=== PATIENT | female | born 1985 | race Two or more races ===

== ENCOUNTER 2017-01-08 15:54 | Emergency (ER) | payer MEDICAID ==
[~2017-01-08] VITALS: Ht 157.5 cm; Wt 90.7 kg
[~2017-01-08 15:54] MED LIST: ARIP15TA6 PO; BENZ0.5T6 PO; FER325T PO; FLUP5TAB PO; HYDR50CA2 PO; METF-371 PO; QUET25TA37; SERT-135 PO; [UNRECOGNIZED DRUG - CODE] PO
[2017-01-08 16:09] VITALS: BP 138/95
[2017-01-08] MEDS ORDERED: IBUPROFEN 600 MG TAB PO ONE (22:30)
== END 2017-01-08 22:35 | disposition home or self-care (01) ==
LOC: ER 16:13
DX: R51 Headache (principal); R07.89 Other chest pain; E11.9 Type 2 diabetes mellitus without complications; I10 Essential (primary) hypertension; J45.909 Unspecified asthma, uncomplicated
CPT/HCPCS: 70450; 71010; 93005

== ENCOUNTER 2023-08-07 18:40 | Emergency (ER) | payer MEDICAID ==
[~2023-08-07 18:40] MED LIST changes: +CHLO10TA5 PO; -FLUP5TAB PO; +FLUP5TAB14 PO; -SERT-135 PO; +SERT100T PO; -[UNRECOGNIZED DRUG - CODE] PO
== END 2023-08-07 20:03 | disposition left against medical advice (07) ==
LOC: ER 18:40
DX: M79.602 Pain in left arm (principal); Z53.21 Procedure and treatment not carried out due to patient leaving prior to being seen by health care provider

== ENCOUNTER 2023-10-10 10:56 | Emergency (ER) | payer MEDICAID ==
[~2023-10-10] VITALS: Ht 160 cm; Wt 90.1 kg
[2023-10-10 11:32] VITALS: BP 146/93; PULSE 117; RESP 18; TEMP 98.1; O2SAT 99
[2023-10-10] MEDS: KETOROLAC TROMETH 60MG/2ML VIAL IM ONE (12:23)
[2023-10-10] MEDS ORDERED: SUMA50TA2 PO (12:32)
== END 2023-10-10 12:37 | disposition home or self-care (01) ==
LOC: ER 10:56
DX: G44.209 Tension-type headache, unspecified, not intractable (principal); I10 Essential (primary) hypertension; E11.9 Type 2 diabetes mellitus without complications; F32.9 Major depressive disorder, single episode, unspecified; J45.909 Unspecified asthma, uncomplicated; F20.9 Schizophrenia, unspecified
CPT/HCPCS: 70450; 96372; 99285; J1885

== ENCOUNTER 2024-05-14 16:10 | Emergency (ER) | payer MEDICAID ==
[~2024-05-14] VITALS: Ht 157.5 cm; Wt 91.2 kg
[~2024-05-14 16:10] MED LIST changes: +SUMA50TA2 PO
--- NOTE | 2024-05-14 16:25 | ED.PDOC ---
History of Present Illness HPI Comments 38-year-old female who comes in with chief complaint of chest pain. The patient states that the pain has been going on for the past 2 hours. The patient was seen at the urgent care approximately 1 hour ago and was told to come to the emergency department's for evaluation. The patient describes the pain as sharp and radiates to the right side and right arm. The patient states that the pain was a 10/10. The patient denies any shortness a breath at this time. The patient states that she has never had this pain in the past. Chief Complaint: Chest Pain Time Seen by MD: 16:15 Primary Care Provider: TINO Reviewed Notes: Nurses Notes, Supervisor Taping Notes, Medications, Allergies (NKDA ) Allergies: Coded Allergies: NO KNOWN ALLERGIES (Unverified , 03/15/13) Home Meds Active Scripts Sumatriptan Succinate (Imitrex) 50 Mg Tab, 1 TAB PO BID, #20 TAB Prov:JESSE MIMS 10/10/23 Reported Medications Benztropine Mesylate (Cogentin) 0.5 Mg Tb, 1 TAB PO BID, #60 TAB 04/21/14 Aripiprazole (Abilify) 15 Mg Tab, 15 MG PO, TAB 04/21/14 Fluphenazine Hcl (Fluphenazine Hcl) 5 Mg Tab, 1 TAB PO QPM, #30 TAB 1 Refill 04/21/14 Chlorpromazine Hcl (Thorazine) 10 Mg Tb, 10 MG PO 04/21/14 Sertraline Hcl (Zoloft) 100 Mg Tab, 1 TAB PO DAILY, #30 TAB 5 Refills 04/21/14 Hydroxyzine Pamoate (Hydroxyzine Pamoate) 50 Mg Cap, 50 MG PO, CAP 04/21/14 Ferrous Sulfate (FERROUS SULFATE) 325 Mg Tb, 1 TAB PO BID, #60 TAB 3 Refills 04/21/14 Metformin Hydrochloride (Metformin Hcl) 850 Mg Tab, 850 MG PO for 30 Days, MG 04/19/14 Quetiapine Fumerate (Seroquel) 25 Mg Tab 10/20/12 Information Source: Patient, Emergency Med Personnel Mode of Arrival: EMS Severity: Moderate Timing: Hours Duration: Since onset Prehospital treatment: None Associated signs and symptoms No shortness a breath, nausea or vomiting Past Medical History PAST MEDICAL HISTORY: Asthma, Depression, DM, High Lipids, HTN, Schizophrenia, Thyroid Surgical History: Denies all surgeries PRODUCT LISTER History: No Pertinent PRODUCT LISTER History Family History Family History: No family hx of HTN Family History (Other): Schizophrenia, depression Social History Smoker: Non-Smoker Alcohol: Denies ETOH Use Drugs: Denies Drug Use Lives In: Home Constitutional: denies: chills, diaphoresis, fatigue, fever, malaise, sweats, weakness, others EENTM: denies: blurred vision, double vision, ear bleeding, ear discharge, ear drainage, ear pain, ear ringing, eye pain, eye redness, hearing loss, mouth pain, mouth swelling, nasal discharge, nose bleeding, nose congestion, nose pain, photophobia, tearing, throat pain, throat swelling, voice changes, others Respiratory: denies: cough, hemoptysis, orthopnea, SOB at rest, shortness of breath, SOB with excertion, stridor, wheezing, others Cardiovascular: reports: chest pain; denies: dizzy spells, diaphoresis, Dyspnea on exertion, edema, irregular heart beat, left arm pain, lightheadedness, palpitations, PND, syncope, others Gastrointestinal: denies: abdomen distended, abdominal pain, blood streaked bowels, constipated, diarrhea, dysphagia, difficulty swallowing, hematemesis, melena, nausea, poor appetite, poor fluid intake, rectal bleeding, rectal pain, vomiting, others Genitourinary: denies: abnormal vagina bleeding, burning, dyspareunia, dysuria, flank pain, frequency, hematuria, incontinence, pain, , vagina discharge, urgency, others Neurological: denies: dizziness, fainting, headache, left sided numbness, left sided weakness, numbness, paresthesia, pre-existing deficit, right sided numbness, right sided weakness, seizure, speech problems, tingling, tremors, weakness, others Musculoskeletal: denies: back pain, gout, joint pain, joint swelling, muscle pain, muscle stiffness, neck pain, others Integumetry: denies: bruises, change in color, change in hair/nails, dryness, laceration, lesions, lumps, rash, wounds, others Allergic/Immunocompromised: denies: Difficulty Healing, Frequent Infections, Hives, Itching, others Hematologic/Lymphatic: denies: anemia, blood clots, easy bleeding, easy bruising, swollen glands, others Endocrine: denies: excessive hunger, excessive sweating, excessive thirst, excessive urination, flushing, intolerance to cold, intolerance to heat, unexplained weight gain, unexplained weight loss, others Psychiatric: denies: anxiety, bipolar disorder, depression, hopeless, panic disorder, schizophrenia, sleepless, suicidal, others Physical Exam General Appearance: No Apparent Distress, Obese HEENT: Normal ENT Inspection, Pharynx Normal, TMs Normal Neck: Full Range of Motion, Non-Tender, Normal, Normal Inspection Respiratory: Chest Non-Tender, Lungs Clear, No Accessory Muscle Use, No Respiratory Distress, Normal Breath Sounds Cardiovascular: No Edema, No JVD, No Murmur, No Gallop, Tachycardia Breast Exam: Deferred Gastrointestinal: No Organomegaly, Non Tender, No Pulsatile Mass, Normal Bowel Sounds, Soft Genitalia: Deferred Pelvic: Deferred Rectal: Deferred Extremities: No calf tenderness, Normal capillary refill, Normal inspection, Normal range of motion, Non-tender, No pedal edema Musculoskeletal : Apperance: Normal Neurologic: Alert, icing mixer II-XII nml as Tested, No Motor Deficits, Normal Affect, Normal Mood, No Sensory Deficits Cerebellar Function: Normal Reflexes: Normal Skin: Dry, Normal Color, Warm Lymphatic: No Adenopathy Was a procedure done? Was a procedure done?: No EKG EKG : Pulse Rate (adult): 117 Sultana: RAD Cardiac Rhythm: ST ST: Nonsp (Low voltage ) Differential Dx Considerations may include: ACS, SC, electrolyte imbalance, pneumothorax X-Ray, Labs, Meds, VS Vital Signs Date Time Temp Pulse Resp B/P (MAP) Pulse Ox O2 Delivery O2 Flow Rate FiO2 05/14/24 17:00 117 05/14/24 16:33 98.3 109 16 176/92 (120) 100 05/14/24 16:16 117 Lab Test 05/14/24 17:00 05/14/24 16:15 Range/Units Troponin I High Sensitivity Pending < 3 L </=34 ng/L White Blood Count 9.8 4.4-10.8 10^3/uL Red Blood Count 4.82 4.0-5.20 10^6/uL Hemoglobin 13.2 12.2-16.2 g/dL Hematocrit 40.5 36.0-46.0 % Mean Corpuscular Volume 84.0 80.0-100.0 fL Mean Corpuscular Hemoglobin 27.4 L 28.0-32.0 pg Mean Corpuscular Hemoglobin Concent 32.7 32.0-36.0 g/dL Red Cell Distribution Width 17.9 H 11.8-14.3 % Platelet Count 263 140-450 10^3/uL Mean Platelet Volume 9.1 6.9-10.8 fL Neutrophils (%) (Auto) 67.2 37.0-80.0 % Lymphocytes (%) (Auto) 24.1 10.0-50.0 % Monocytes (%) (Auto) 6.2 0.0-12.0 % Eosinophils (%) (Auto) 2.2 0.0-7.0 % Basophils (%) (Auto) 0.3 0.0-2.0 % Neutrophils # (Auto) 6.6 1.6-8.6 10 ^3/uL Lymphocytes # (Auto) 2.4 0.4-5.4 10 ^3/uL Monocytes # (Auto) 0.6 0-1.3 10 ^3/uL Eosinophils # (Auto) 0.2 0-0.8 10 ^3/uL Basophils # (Auto) 0 0-0.2 10 ^3/uL Nucleated Red Blood Cells 0.0 % Prothrombin Time 10.2 9.3-11.8 sec Prothrombin Time INR 0.96 0.9-1.15 Activated Partial Thromboplast Time 28.9 24.5-34.5 SEC D-Dimer, Quantitative < 0.19 0.0-0.49 mg/L FEU Sodium Level 136 136-145 mmol/L Potassium Level 4.3 3.5-5.1 mmol/L Chloride Level 100 98-107 mmol/L Carbon Dioxide Level 29 20-31 mmol/L Anion Gap 7 5-15 Blood Urea Nitrogen 9 9-23 mg/dL Creatinine 0.65 0.550-1.02 mg/dL Glomerular Filtration Rate Calc 116 >90 mL/min BUN/Creatinine Ratio 13.8 10.0-20.0 Serum Glucose 169 H 74-106 mg/dL Calcium Level 10.2 8.7-10.4 mg/dL Total Bilirubin 0.2 0.2-1.0 mg/dL Aspartate Amino Transferase (AST) 18 13-40 U/L Alanine Aminotransferase (ALT) 24 7-40 U/L Alkaline Phosphatase 93 46-116 U/L Total Protein 7.5 5.7-8.2 g/dL Albumin 4.9 H 3.2-4.8 g/dL The CBC is within normal limits The D-dimer is negative The chest x-ray is negative. The troponin is negative The chemistry panel is within normal limits At this time, the patient is being discharged The patient will follow up with the primary care doctor The patient will return to the emergency department's the condition worsens. Images Reviewed?: Images reviewed and evaluated by me Time of 1ST Reevaluation: 17:00 Reevaluation 1ST: Unchanged Patient Education/Counseling: Diagnosis, Treatment, Prognosis, Need For Follow Up Family Education/Counseling: No Family Present Departure 1 Departure Time of Disposition: 17:27 Impression: Primary Impression: Non-cardiac chest pain Disposition: 01 HOME / SELF CARE / HOMELESS Condition: Fair Discharged With: Self Critical Care Note Critical Care Time?: No Stability Stability form required: No Heart Score Heart Score: Heart Score Response (Comments) Value History Slightly Suspicious 0 EKG Normal 0 Age <45 0 Risk Factors 1 or 2 risk factors 1 Troponin Normal limit 0 Total 1 CYNDY SPANN MD May 14, 2024 16:25
[2024-05-14 16:39] LABS: Basophils # (auto) 0 10 ^3/uL (0-0.2); Basophils % (auto) 0.3 % (0.0-2.0); Eosinophils # (auto) 0.2 10 ^3/uL (0-0.8); Eosinophils % (auto) 2.2 % (0.0-7.0); Hematocrit 40.5 % (36.0-46.0); Hemoglobin 13.2 g/dL (12.2-16.2); Lymphocytes # (auto) 2.4 10 ^3/uL (0.4-5.4); Lymphocytes % (auto) 24.1 % (10.0-50.0); Mean Corpuscular Hemoglobin 27.4 pg (28.0-32.0); Mean Corpuscular Hgb Conc. 32.7 g/dL (32.0-36.0); Monocytes # (auto) 0.6 10 ^3/uL (0-1.3); Monocytes % (auto) 6.2 % (0.0-12.0); Neutrophils # (auto) 6.6 10 ^3/uL (1.6-8.6); Neutrophils % (auto) 67.2 % (37.0-80.0); Platelet Count (auto) 263 10^3/uL (140-450); Red Blood Cells 4.82 10^6/uL (4.0-5.20); Red Cell Distribution Width 17.9 % (11.8-14.3); White Blood Cell 9.8 10^3/uL (4.4-10.8)
--- NOTE | 2024-05-14 16:53 | DVH ---
CHEST RADIOGRAPH Indication: CHEST PAIN Technique: Single frontal view of the chest was obtained COMPARISON: None FINDINGS: No pneumothorax, pulmonary edema, or consolidative infiltrates. The heart is not enlarged. No fract ures are identified about the bony thorax. IMPRESSION: No acute intrathoracic process.
[2024-05-14 16:54] LABS: INR 0.96 (0.9-1.15); Partial Thromboplastin Time 28.9 SEC (24.5-34.5); Prothrombin Time 10.2 sec (9.3-11.8)
[2024-05-14 16:57] LABS: Alanine Aminotransferase 24 U/L (7-40); Alkaline Phosphatase 93 U/L (46-116); Anion Gap 7 (5-15); Aspartate Aminotransferase 18 U/L (13-40); BUN/Creatinine Ratio 13.8 (10.0-20.0); Blood Urea Nitrogen 9 mg/dL (9-23); Calcium 10.2 mg/dL (8.7-10.4); Carbon Dioxide 29 mmol/L (20-31); Chloride 100 mmol/L (98-107); Potassium 4.3 mmol/L (3.5-5.1)
[2024-05-14 16:58] LABS: Total Protein 7.5 g/dL (5.7-8.2)
[2024-05-14 16:59] LABS: Albumin 4.9 g/dL (3.2-4.8); Bilirubin, Total 0.2 mg/dL (0.2-1.0); Glucose 169 mg/dL (74-106); Sodium 136 mmol/L (136-145)
[2024-05-14 17:52] VITALS: BP 144/88; PULSE 100; RESP 20; TEMP 98.6; O2SAT 98
[2024-05-14 18:28] LABS: Amphetamine Screen, Urine Neg (NEGATIVE); Barbiturate Scree,Urine Neg (NEGATIVE); Benzodiazephine Screen, Urine Neg (NEGATIVE); Cannabinoid Screen, Urine Neg (NEGATIVE); Cocaine Screen, Urine Neg (NEGATIVE); Opiate Scree,Urine Neg (NEGATIVE); Phencyclidine Screen, Urine Neg (NEGATIVE); Urine Bacteria FEW /hpf (None Seen); Urine Blood Negative /uL (Negative); Urine Clarity Clear (Clear); Urine Color Light-Yellow (Yellow); Urine Protein, UAD Negative (Negative); Urine Specific Gravity 1.017 (1.001-1.035); Urine Squamous Epithelial Cell FEW /hpf (<5); Urine Urobilinogen Normal (Negative); Urine WBC 5 /HPF (0-5); Urine pH 6.5 (5.0-9.0)
--- NOTE | 2024-05-14 19:17 | ECG ---
[facility] Test Date: 2024-05-14 Test Time: 17:18:48 Pat Name: KACI REGALADO Department: ED Room: Gender: F Accounting Analyst: FAZAL : 1985 Requested By: CYNDY SPANN Order Number: [id number] Reading MD: Fede Velásquez Measurements Intervals [place] Rate: 107 P: 67 WA: 175 QRS: 107 QRSD: 87 T: -1 QT: 366 QTc: 489 Interpretive Statements Sinus tachycardia Borderline right axis deviation Low voltage, precordial leads Borderline T abnormalities, anterior leads Borderline prolonged QT interval Electronically Signed On 05-15-2024 13:17:18 PST by Fede Velásquez Please click the below link to view image of tracing.
--- NOTE | 2024-05-16 06:39 | ECG ---
[facility] Test Date: 2024-05-14 Test Time: 16:16:54 Pat Name: KACI REGALADO Department: ER Room: Gender: F Varnish Dipper: KIZZY : 1985 Requested By: CYNDY SPANN Order Number: [id number] Reading MD: Measurements Intervals [place]s Rate: 117 P: 65 LA: 171 QRS: 112 QRSD: 83 T: 37 QT: 325 QTc: 454 Interpretive Statements Sinus tachycardia Right axis deviation Low voltage, precordial leads Borderline T abnormalities, anterior leads Baseline wander in lead(s) V6 Please click the below link to view image of tracing.
== END 2024-05-14 17:55 | disposition home or self-care (01) ==
LOC: ER 16:10
DX: R07.89 Other chest pain (principal); J45.909 Unspecified asthma, uncomplicated; F32.A Depression, unspecified; E11.9 Type 2 diabetes mellitus without complications; F20.9 Schizophrenia, unspecified; I10 Essential (primary) hypertension; E78.5 Hyperlipidemia, unspecified; M79.601 Pain in right arm
CPT/HCPCS: 36415; 71045; 80053; 80307; 81001; 84484; 85025; 85379; 85610; 85730; 93005